=== PATIENT | male | born 1960 | race Caucasian/White ===

== ENCOUNTER 2016-09-22 07:30 | Inpatient (IN) ==
[2016-10-11] MEDS ORDERED: LIDOCAINE MPF 2% /EPI 20 ML VIAL ONE (05:52)
[2016-10-11] MEDS ORDERED: ALVIMOPAN 12 MG CAPSULE PO ONE (06:00)
[2016-10-11] MEDS ORDERED: cefTRIAXone 1,000 MG in SODIUM CHLORIDE 0.9% 100 ML IV ONE (06:00)
[2016-10-11] MEDS ORDERED: ALVIMOPAN 12 MG CAPSULE ONE (06:19)
[2016-10-11] MEDS ORDERED: SODIUM CHLORIDE 0.9% 100 ML IV ONE (06:20)
[2016-10-11] MEDS ORDERED: cefTRIAXone 1,000 MG VIAL ONE (06:20)
[2016-10-11] MEDS ORDERED: LACTATED RINGERS 1,000 ML IV SCH (06:30)
[2016-10-11] MEDS ORDERED: ROPIVACAINE 0.5% 30 ML VIAL ONE (06:50)
--- NOTE | 2016-10-11 06:52 | History and Physical Update ---
History and Physical Update - History and Physical H&P was reviewed, the patient examined and there: are no changes in the patients condition since last H&P was completed.
[2016-10-11] MEDS ORDERED: SUCCINYLCHOLINE 200 MG/10 ML VIAL ONE (07:15)
[2016-10-11] MEDS ORDERED: DEXAMETHASONE 10 MG/1 ML VIAL ONE (07:15)
[2016-10-11] MEDS ORDERED: PHENYLEPHRINE 1 MG/10 ML SYRINGE IV ONE (07:15)
[2016-10-11] MEDS ORDERED: LIDOCAINE 2% 5 ML VIAL ONE (07:15)
[2016-10-11] MEDS ORDERED: GLYCOPYRROLATE 0.4 MG/2 ML VIAL ONE (07:15)
[2016-10-11] MEDS ORDERED: ROCURONIUM 100 MG/10 ML VIAL IV ONE (07:15)
[2016-10-11] MEDS ORDERED: PROPOFOL 200 MG/20 ML VIAL IV ONE (07:15)
[2016-10-11] MEDS ORDERED: ONDANSETRON 4 MG/2 ML VIAL ONE ×2 (07:15→10:27)
[2016-10-11] MEDS ORDERED: NEOSTIGMINE 10 MG/10 ML VIAL ONE (07:15)
[2016-10-11 08:24] LABS: Apearance,Urine CLEAR (Clear); Bilirubin,Urine Negative (Negative); Blood, Urine Negative (Negative); Glucose,Urine (UA) 50 mg/dL (Negative); Ketones,Urine Negative (Negative); Nitrite,Urine Negative (Negative); Protein,Urine Negative; RBC,Urine <1 /HPF (0-4); Urine Color Straw (Yellow); Urine Specific Gravity 1.005 (1.001-1.035); Urine Urobilinogen < 2.0 EU/DL (0.2-1.0); WBC,Urine 1 /HPF (0-6)
[2016-10-11] MEDS ORDERED: ONDANSETRON 4 MG/2 ML VIAL IV PRN (08:36)
[2016-10-11] MEDS ORDERED: diphenhydrAMINE 50 MG/1 ML VIAL IV PRN (09:41)
--- NOTE | 2016-10-11 09:53 | Operative Note ---
Date of procedure: 10/11/16 Pre-op diagnosis: Renal cell carcinoma the right kidney Post-op diagnosis: same Procedure: 56-year-old white male with a large renal cell carcinoma the right kidney emanating from the mid to right lower pole. Metastatic survey is negative. I have recommended an open right radical nephrectomy. The procedure was explained at length and in detail. Risks, complications, outcomes, sequelae, prognosis and alternative therapy was discussed. Patient understood this and agreed to proceed. Patient brought to the operative suite placed on the table in the supine position. He is given a general endotracheal anesthetic and then rolled in the left lateral decubitus position and secured to the table for right radical nephrectomy. He is then prepared and draped in the usual sterile manner. Formal timeout performed. Incision is created over the 12th rib and carried laterally across the abdomen. Incision is wide with cautery. The muscles were divided. Periosteum of the rib was then elevated and the small portion of the rib was removed. Diaphragm is then dissected away small rent in the pleura was created and this will be closed at the end of the case. The muscles were further divided. The retroperitoneum was entered and the kidney is then blotted. Plane between the colon and Gerota's fascia is then developed. There is a lot of parasitic vessels to this tumor as imagine. These were then cauterized and divided. Ureter is not identified and then isolated. It is ligated with proximal 2-0 silk and a distal 2-0 chromic and divided. Attachments were then divided sharply with cautery. Dissection was continued posterior and laterally sharp and blunt dissection was performed. Vessels were hemoclipped and divided. Dissection was continued sharply over on top of the adrenal. The attachments were hemoclipped and divided. The adrenal vein is identified Hemoclip 2 and divided. Dissection was continued medially around the vessels. Artery and the vein were then divided and using a vascular staple the artery was initially divided and then the vein was then divided. The specimen was then removed along with the adrenal and sent for pathologic examination. On the vena cava the lymphatic tissue was then dissected away there was a anterior vein was hemoclipped 2 and divided and his karyn package was then sent for separate pathologic examination. Wound was irrigated and drained. Hemostasis checked with cautery. Piece of Gelfoam was placed over the vena cava and in the renal and adrenal fossa. The break was removed and the table patient was laying flat. The rent in the pleura was slightly enlarged. A 14 Vietnamese catheter was placed in this in the 2-0 Vicryl pursestring was then placed around this. With full inspiration 60 cc catheter tip syringe was then used to provide negative pressure and the catheter was removed while tying the pursestring suture tightly. The wound was then closed in multiple layers interrupted #1 Vicryl. Subcutaneous tissue was irrigated drained and hemostasis checked with cautery. The skin closed skin clips. 0.5% Neuropin was then used to provide intercostal block and wound anesthesia. 30 cc were used. Sterile dressings were placed on the wound. Patient was awakened general anesthesia and rolled in the supine position having tolerated this procedure well. Patient was then transferred to the recovery room in stable condition. All sponge, needle needle counts correct 2. Anesthesia: GETA Surgeon / Physician: Mark Anthony Saleh Estimated blood loss: other (200cc) Specimens: other (Right kidney with adrenal, pericaval lymph nodes) Condition: stable Disposition: PACU Discharge Plan - Discharge Medications No Action glyBURIDE [Glyburide] 5 mg PO DAILY amLODIPine [Norvasc] 5 mg PO DAILY Lisinopril 20 mg PO DAILY - Follow Up or Referral - Forms/Instructions
[2016-10-11] MEDS ORDERED: SEVOFLURANE 1 UNIT/15 MINUTE INH ONE (10:17)
[2016-10-11] MEDS ORDERED: MIDAZOLAM 2 MG/2 ML VIAL ONE (10:17)
[2016-10-11] MEDS ORDERED: LACTATED RINGERS 1,000 ML IV ONE (10:17)
[2016-10-11] MEDS ORDERED: fentaNYL 100 MCG/2 ML VIAL ONE (10:17)
[2016-10-11] MEDS ORDERED: ACETAMINOPHEN 1,000 MG/100 ML VIAL IV ONE (10:17)
[2016-10-11] MEDS ORDERED: DESFLURANE 1 UNIT/15 MINUTE INH ONE (10:18)
[2016-10-11] MEDS ORDERED: HYDROmorphone 2 MG/1 ML VIAL ONE (10:27)
[2016-10-11] MEDS: HYDROmorphone 2 MG/1 ML VIAL IV PRN ×2 (10:30→10:35)
[2016-10-11] MEDS ORDERED: HYDROmorphone PCA 30 MG/30 ML SYRINGE IV ONE (10:41)
--- NOTE | 2016-10-11 10:45 | XRay Report ---
Exam: XR chest 1V Date: 10/11/2016 9:45 AM Comparison: None Indication: Closure on the pleura, possible pneumo thorax Technique:[Portable AP sitting chest] Findings: Limited expiratory chest. The heart is enlarged with diffuse atelectasis/edema especially in the perihilar location on the right. No definite pneumothorax is identified. Increased right hilar density with degenerative changes. Impression: Cardiomegaly with perihilar atelectasis/infiltration especially on the right with increased right hilar density. This finding makes it difficult to exclude possible adenopathy, etc. Follow-up chest x-ray recommended. No definite pneumothorax identified. PROCEDURE INTERPRETED AT [facility] DEPARTMENT OF RADIOLOGY Final Report Signed by: Dr. Ale Lainez
[2016-10-11] MEDS: HYDROmorphone PCA 30 MG/30 ML SYRINGE IV SCH (10:47)
[2016-10-11] MEDS: SODIUM CHLORIDE 0.45% 1,000 ML IV SCH ×2 (11:28→21:30)
[2016-10-11] MEDS: ONDANSETRON 4 MG/2 ML VIAL IV PRN (13:37)
--- NOTE | 2016-10-11 16:21 | Pulmonology Progress Note ---
Pulmonary - PN: Subj Interval history: Patient is a 56 year white man that was found to have a right renal mass came in today and had the renal cancer resected. He is a large man that has high blood pressure and diabetes. He has been quite healthy however. He was found to have an abnormal EKG so he did undergo a cardiac catheterization recently. This turned out to be negative. He denied any breathing problems and he came in today for the surgery. He is complaining of some nausea and coarse discomfort. Otherwise he had no trouble with anesthesia and did well with the surgery. He has not had any breathing problems now. Exam (Progress Note) - Constitutional Vitals: Period Temp Pulse Resp BP Sys/Martinez Pulse Ox Last 24 Hr 97.0 F-98.2 F 65-83 16-20 134-183/65-101 92-98 General appearance: mild distress, over weight, other (He is uncomfortable but is breathing okay) - Head Head exam: Present: normal inspection, normocephalic - Eye Eye exam: Present: EOMI. Absent: scleral icterus Pupils: Present: TITA - ENT ENT exam: Present: normal exam - Neck Neck exam: Present: normal inspection. Absent: lymphadenopathy, thyromegaly - Respiratory Respiratory exam: Present: clear to auscultation bilaterally. Absent: wheezes - Cardiovascular Cardiovascular exam: Present: regular rate and rhythm. Absent: gallop, systolic murmur - GI/Abdominal GI/Abdominal exam: Present: hypoactive bowel sounds, tenderness (Has right sided tenderness), soft. Absent: organomegaly - Extremities Exam Extremities exam: Absent: calf tenderness, edema - Neurological Exam Neurological exam: Present: alert, oriented X3, CN II-XII intact - Psychiatric Psychiatric exam: Present: normal affect, normal mood - Skin Skin exam: Present: warm, dry Assessment and Plan (1) Renal cell cancer Status: Acute Assessment and plan: The patient had a right nephrectomy today for renal cell cancer. He seems to be stable postop Current Visit: Yes (2) Hypertension Status: Acute Assessment and plan: He is alert and has a stable blood pressure so far. Current Visit: Yes (3) Diabetes Status: Acute Assessment and plan: His glucoses will be monitored. Current Visit: Yes
--- NOTE | 2016-10-11 17:42 | Urology Progress Note ---
Urology - PN: Subj Interval history: Postoperative check. Patient is awake and alert. Dressing is dry and intact. Abdomen is soft but incisional tenderness. Urine is clear. Vital signs are stable. Patient is stable. Exam - Constitutional Vitals: Period Temp Pulse Resp BP Sys/Martinez Pulse Ox Last 24 Hr 97.0 F-98.2 F 65-83 16-20 134-183/65-101 92-98
[2016-10-11] MEDS: ALVIMOPAN 12 MG CAPSULE PO SCH (20:14)
[2016-10-12 06:05] LABS: Basophils % 0.1 % (0.0-0.8); Hemoglobin 12.5 GM/DL (14.0-18.0); Immature Granulocytes % 0.6 %; Immature Granulocytes Absolute 0.08 #; Lymphocytes # 1.1 10*3/uL (1.4-4.0); Lymphocytes % 7.8 % (21.2-54.2); Mean Corpuscular HGB Conc 30.5 GM/DL (32-36); Mean Corpuscular Hemoglobin 25 PG (27-34); Mean Corpuscular Volume 82.7 FL (87-102); Mean Platelet Volume 10.3 FL (9.6-12.0); Monocytes # 0.8 10*3/uL (0.11-0.8); Monocytes % 5.6 % (1.7-12.7); Neutrophils # 12.2 10*3/uL (1.4-7.4); Neutrophils % 85.9 % (38.7-73.9); Platelet Count 202 T/CUMM (130-400); Red Blood Count 4.96 MC/CUMM (3.8-5.5); Red Cell Distribution Width 14.6 % (9.3-17.3); White Blood Count 14.2 T/CUMM (4-12)
[2016-10-12 06:39] LABS: Calcium 8.6 MG/DL (8.5-10.1); Osmolality,Calculated 294.4 MOS/KG (273-304)
--- NOTE | 2016-10-12 08:05 | Event Note ---
This is a chart review note only in response to a courtesy consult. He is status post right radical nephrectomy for renal cell carcinoma. Hopefully I will be able to come by to see him later today.
[2016-10-12] MEDS: LISINOPRIL 20 MG TABLET PO SCH (08:14)
[2016-10-12] MEDS: amLODIPine 5 MG TABLET PO SCH (08:14)
[2016-10-12] MEDS: glyBURIDE 5 MG TABLET PO SCH (08:14)
[2016-10-12] MEDS: ALVIMOPAN 12 MG CAPSULE PO SCH ×2 (08:14→22:05)
[2016-10-12] MEDS: SODIUM CHLORIDE 0.45% 1,000 ML IV SCH ×2 (08:17→22:14)
--- NOTE | 2016-10-12 08:57 | Pulmonology Progress Note ---
Pulmonary - PN: Subj Interval history: Patient is a 56 year white man that was found to have a right renal mass came in today and had the renal cancer resected. He is a large man that has high blood pressure and diabetes. He has been quite healthy however. He was found to have an abnormal EKG so he did undergo a cardiac catheterization recently. This turned out to be negative. He had surgery yesterday for the right nephrectomy. He apparently has a large tumor. He had a lot of nausea and discomfort yesterday but is better today. He feels like he is breathing okay and discomfort is a little better. He did sit up a good bit last night. Overall he is doing fairly well. Exam (Progress Note) - Constitutional Vitals: Period Temp Pulse Resp BP Sys/Martinez Pulse Ox Last 24 Hr 97.0 F-98.1 F 65-83 16-20 129-151/65-85 92-98 Exam: General appearance: no distress, over weight, other (He is comfortable lying in bed and looks better today.) - Head Head exam: Present: normal inspection, normocephalic - Eye Eye exam: Present: EOMI. Absent: scleral icterus Pupils: Present: TITA - ENT ENT exam: Present: normal exam - Neck Neck exam: Present: normal inspection. Absent: lymphadenopathy, thyromegaly - Respiratory Respiratory exam: Present: clear to auscultation bilaterally. He is moving air well without any wheezing. - Cardiovascular Cardiovascular exam: Present: regular rate and rhythm. Absent: gallop, systolic murmur - GI/Abdominal GI/Abdominal exam: Present: hypoactive bowel sounds, tenderness (Has right sided tenderness), soft. Absent: organomegaly - Extremities Exam Extremities exam: Absent: calf tenderness, edema - Neurological Exam Neurological exam: Present: alert, oriented X3, CN II-XII intact - Psychiatric Psychiatric exam: Present: normal affect, normal mood - Skin Skin exam: Present: warm, dry Results - Labs CBC & BMP: 10/12/16 05:23 10/12/16 05:23 Assessment and Plan (1) Renal cell cancer Status: Acute Assessment and plan: The patient had a right nephrectomy today for renal cell cancer. He does have some discomfort but is doing better today. Current Visit: Yes (2) Hypertension Status: Acute Assessment and plan: He is alert and has a stable blood pressure so far. He appears to be medically stable. Current Visit: Yes (3) Diabetes Status: Acute Assessment and plan: His glucoses will be monitored. His glucose was 198 this morning Current Visit: Yes (4) Renal insufficiency Status: Acute Assessment and plan: His creatinine is up to 2.4 today. Current Visit: Yes
[2016-10-12] MEDS: HYDROmorphone PCA 30 MG/30 ML SYRINGE IV SCH (09:19)
--- NOTE | 2016-10-12 09:51 | Physician Query Form ---
CLICK EDIT DOCUMENT TO SELECT QUERY ANSWER --> OK --> SIGN Gemma Fleming RN, CCDS Certified Clinical Industrial Machine Operator W) [phone] (f) [phone] [email or web address] PROVIDERS: Make your selection(s) from the choices in EACH section by typing an "x" and enter comments in the comment section. Please use your independent medical judgment in providing your response. This request does not imply that any particular answer is desired or expected. CLINICAL INDICATORS: (Providers should not edit this section) The medical record indicates that the patient was admitted for renal cell cancer , had surgery, on the : "Renal Insufficiency" creatinine is up to 2.4 today and the patient is on 07/25 NS. Clarify which of the following most accurately represents the patient's renal status: ( ) Acute kidney injury (non-traumatic) ( ) Acute renal failure ( ) Acute renal failure with underlying Chronic Kidney Disease (CKD) - please provide stage below ( ) Acute renal failure with pathological renal lesion ( ) Acute renal failure with necrosis ( ) tubular ( ) medullary ( ) cortical ( ) CKD - please provide stage below ( ) End Stage Renal Disease ( ) Acute interstitial nephritis ( ) Hepatorenal syndrome ( ) Other, please specify: ( x) Clinically unable to determine Chronic Kidney Disease Stages Source: National Kidney Disease Foundation ( ) Stage I (eGFR > or = 90) ( ) Stage II (eGFR 60 - 89) ( ) Stage III (eGFR 30 - 59) ( ) Stage IV (eGFR 15 - 29) ( ) Stage V (eGFR < 15 or dialysis) COMMENTS: Use of terms such as suspected, likely, or probable (associated with a specific diagnosis that is being evaluated, monitored, or treated as if it exists) are acceptable and can be restated in the discharge summary if not ruled out. MTDD
--- NOTE | 2016-10-12 11:47 | Pathology Report from [facility] ---
ACCESSION # : [id number] PATIENT NAME : Girish Mesa ORDERING DR : PETE MESSINA MD CLINICAL HX: Right renal mass POST-OP DX: Same SPECIMEN INFO: #1 Right kidney with adrenal #2 Pericaval node (FRESH) GROSS DESCRIPTION: #1 Received in formalin labeled with the patient's name "GIRISH MESA" and consists of a 11.5 x 7.0 cm kidney. Bisecting the kidney reveals a large yellow-orange tumor mass involving grossly the upper and lower poles of the kidney measuring 11.5 x 7.0 cm. Grossly the tumor extends to the renal capsule and largely involves the renal pelvis. A layer of perirenal fat is attached to the kidney which measures from 0.5 cm up to 2.0 cm in thickness. Grossly the Gerota fascia lies freely over the kidney. A fragment of fibroadipose tissue is received separately in the container measuring 10.5 x 7.5 cm with the 5.0 x 5.0 cm unremarkable adrenal gland. Sections: 1A ureter and vascular margins, 1B and 1C tumor and adjacent fatty margins, 1D thru 1G ( Sinus) additional tumor, 1H parts sales representative normal kidney, 1I additional fatty margin, 1J thru 1L parts sales representative adrenal gland.#2 Received fresh labeled with the patient's name "GIRISH MESA" and consists of an adipose tissue fragment measuring 6.3 x 2.2 cm. No lymph node tissue is grossly appreciated on sectioning. Submitted entirely in cassettes 2A and 2B. DIAGNOSIS FOR GIRISH MESA: #1 & #2 RIGHT KIDNEY & ADRENAL W/ PERICAVAL LYMPH NODE, RADICAL NEPHRECTOMY: TYPE: Renal cell carcinoma, clear cell pattern. SIZE : 11.5 x 7.0 cm. TREY GRADE 2. MARGINS: Uninvolved. SITE: Central kidney. FOCALITY: Unifocal. ANATOMIC EXTENT: Tumor limited to kidney. SARCOMATOID FEATURES: Not identified. TUMOR NECROSIS: Not identified. LYMPH VASCULAR INVASION: Not identified. LYMPH NODES: Number examined: 1 (#3 pericaval node) ; Number involved: 0. FINDINGS IN KIDNEY: Focal Glomerulosclerosis and Interstitial nephritis. AJCC PATHOLOGIC STAGE II ([id number]). SERVICE DATE: 10/11/2016 REPORT DATE: 10/12/2016 PATHOLOGIST: Simon Victoria M.D. [facility]IDE HOSPITALAleksandra
[2016-10-12] MEDS ORDERED: MEPERIDINE 50 MG/1 ML VIAL IM PRN (12:18)
--- NOTE | 2016-10-12 12:21 | Urology Progress Note ---
Urology - PN: Subj Interval history: Postop day 1 radical nephrectomy. Patient is doing well. His abdomen is soft. He is ambulating some. H&H is stable. His creatinine went up to 2.4 from 1.9 preop. I am not surprised about that. He had some moderate pain. We will DC his INFANT NANNY place him on oral meds as they would last longer. Demerol if he needs it. He needs to ambulate. Pathology report is back. It reveals a confined cancer. This is a large cancer. But lymph nodes were negative and no lymphovascular invasion. His prognosis is excellent considering the size of his tumor. It was a grade 2 however. Exam - Constitutional Vitals: Period Temp Pulse Resp BP Sys/Martinez Pulse Ox Last 24 Hr 97.3 F-98.2 F 57-83 16-20 129-148/66-82 94-95 Results - Labs CBC & BMP: 10/12/16 05:23 10/12/16 05:23
[2016-10-12] MEDS: ONDANSETRON 4 MG/2 ML VIAL IV PRN (13:29)
[2016-10-12] MEDS: oxyCODONE/ACETAMINOPHEN 5-325 MG TABLET PO PRN ×3 (15:37→22:15)
[2016-10-12] MEDS ORDERED: ALUMINUM/MAGNES/SIMETH MAX STR 30 ML UDCUP PO PRN (18:49)
--- NOTE | 2016-10-12 19:29 | EKG Report ---
Stationary ECG Study [facility] Test Date: 10/12/2016 7:29:44 PM Pat Name: GIRISH CASTILLO Department: Room: 541 Gender: M Hydramatic Specialist: CAITLYN : 1960 Requested by: Brad Hinton Order Number: [id number] Reading MD: ZULY MAYS Intervals [place] Rate: 64 P: 56 TN: 144 QRS: 12 QRSD: 106 T: 61 QT: 411 QTc: 421 Interpretive Statements SINUS RHYTHM WITH FREQUENT VENTRICULAR PREMATURE COMPLEXES LEFT ATRIAL ENLARGEMENT POSSIBLE OLD ANTEROSEPTAL MYOCARDIAL Electronically Signed On 10-15-16 19:21:23 CDT by ZULY MAYS [email or web address]
[2016-10-12 19:51] LABS: Troponin I Only 0.025 NG/ML (0.00-0.045)
[2016-10-13] MEDS: oxyCODONE/ACETAMINOPHEN 5-325 MG TABLET PO PRN (01:40)
--- NOTE | 2016-10-13 08:04 | Oncology Consult Note ---
History of Present Illness History of present illness: Mr. Mesa is a 56 year old male who is now status post right radical nephrectomy for a large renal cell carcinoma. 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 One lymph node on the sample was negative. He is currently recovering from surgery. He still not had a bowel movement in his diet is being slowly advanced. He is artery scheduled see me on October 25. At that time I'll likely arrange for a follow-up CT scan to be done 6 months from surgery. Given that his creatinine is greater than 2, we will likely have to do the scans without contrast. Please if there are any further questions that I can answer while he is in the hospital. Home Medications Medication Instructions Recorded Confirmed Type Lisinopril 20 mg PO DAILY 10/06/16 10/11/16 History amLODIPine [Norvasc] 5 mg PO DAILY PRN 10/06/16 10/11/16 History glyBURIDE [Glyburide] 5 mg PO DAILY 10/06/16 10/11/16 History amLODIPine [Norvasc] 2.5 mg PO DAILY 10/11/16 10/11/16 History Allergies Allergy/AdvReac Type Severity Reaction Status Date / Time valsartan AdvReac Severe Severe Verified 10/07/16 11:07 [place]o in BP Medical,Surgical,& Family Hx - Medical History Cardio: History of: Cardiac Dysrhythmia (IRRUGLAR HEART BEAT), Hypertension Psychological: History of: Anxiety Disorders Neurology: No history of: Seizures Endocrine: History of: Diabetes Mellitus (NIDDM) Renal: History of: Renal (Kidney) Cancer (RIGHT KIDNEY) - Surgical History Thoracic Surgeries: Surgical HX of;: Kidney (Renal Surgery) (10/11/16) HEENT Surgeries: Surgical HX of: Tonsilectomy & Adenoidectomy Abdominal Surgeries: Surgical HX of: Hernia Repair (2000) - Family History Family History: Reports;: Family Hypertension (MOTHER) - Social History Smoking Status: Never smoker Frequency of Alcohol Use: None Type of Drug Use: None Exam - Constitutional Vitals: Period Temp Pulse Resp BP Sys/Martinez Pulse Ox Last 24 Hr 98.2 F-99.2 F 57-84 18-20 136-157/66-86 90-95 Results - Labs CBC & BMP: 10/12/16 05:23 10/12/16 05:23
[2016-10-13] MEDS: glyBURIDE 5 MG TABLET PO SCH (09:41)
[2016-10-13] MEDS: amLODIPine 5 MG TABLET PO SCH (09:41)
[2016-10-13] MEDS: LISINOPRIL 20 MG TABLET PO SCH (09:41)
[2016-10-13] MEDS: ALVIMOPAN 12 MG CAPSULE PO SCH (09:42)
--- NOTE | 2016-10-13 10:26 | Discharge Summary ---
Hospital Course - Hospital Course Hospital Course: Patient status post right radical nephrectomy for renal cell carcinoma. He tolerated the procedure well. His creatinine did rise from 1 9-2.4. That is not surprising. His pathology report revealed confined cancer. Negative margins and negative lymph nodes. I will leave follow-up treatments etc. with Dr. Peres. We will of course centimeters postoperative in the recovery period. His abdomen is soft. He is ambulating. His wound is healing well. He is passing gas. I gave the patient the option whether he could go home or stay another day and he wants to go home. I think that is appropriate. He will do better at home. Natural surroundings. His abdomen is soft on exam. He is voiding well. We will discharge him to follow-up in office in 2 weeks. Discharge medicines will be Percocet 5 mg, #20, 1 every 4-6 hours as needed pain. He will continue his home medicines. We will stay off the aspirin until I see him. Discharge Plan - Discharge Data Disposition: Disch To Home/Self Care Condition at Discharge: Stable Discharge Diet: diabetic diet Activity: no lifting, other (No lifting, straining, driving or riding. Walking on flat ground is encouraged) Hygiene: no restrictions Weight Bearing at Discharge: full weight bearing Driving: not until seen by doctor Contact your physician if you experience:: fever over 101, Difficulty voiding, Redness or swelling, Nausea/Vomiting, Shortness of breath, Bleeding, pain uncontrolled by pain medications - Discharge Medications New oxyCODONE/ACETAMINOPHEN 5-325 [Percocet 5-325] 1 - 2 tablet PO Q4H PRN #0 tablet PRN Reason: Pain Moderate (4-7) Continue glyBURIDE [Glyburide] 5 mg PO DAILY amLODIPine [Norvasc] 5 mg PO DAILY PRN PRN Reason: blood pressure Lisinopril 20 mg PO DAILY amLODIPine [Norvasc] 2.5 mg PO DAILY - Follow Up or Referral - Forms/Instructions Exam - Constitutional Vitals: Period Temp Pulse Resp BP Sys/Martinez Pulse Ox Last 24 Hr 98.2 F-99.2 F 57-95 18-20 136-157/66-86 90-95 Discharge Results Labs on day of discharge: Labs from last 24 hours 10/13/16 10/12/16 10/12/16 07:24 23:41 18:59 POC Glucose 133 H 161 H Total Creatine Kinase 465 H CK-MB (CK-2) 2.7 Troponin I 0.025 DS: Provider Date of admission: 10/11/16 05:39 Primary care physician: Emma Burns, Attending physician on admission: Mark Antohny Saleh MD Consults: 10/11/16 09:41 Consult to Physician [CONS] Routine Comment: Renal cell carcinoma Consulting Provider: Raymundo Peres Person Notified: Nuha Date Notified: 10/11/16 Time Notified: 13:59 10/11/16 09:43 Consult to Physician [CONS] Routine Comment: re: Medical Locomotive Engineer Diesel Provider: Brad Hinton Person Notified: CROW Date Notified: 10/11/16 Time Notified: 14:16 Consult Notification Comment: 10/11/16 12:05 Consult to Dietitian [CONS] Routine Reason for Dietitian: Other Discharging clinician: Mark Anthony Saleh MD
--- NOTE | 2016-10-13 10:27 | Pulmonology Progress Note ---
Pulmonary - PN: Subj Interval history: Patient is a 56 year white man that was found to have a right renal mass came in today and had the renal cancer resected. He is a large man that has high blood pressure and diabetes. He has been quite healthy however. He was found to have an abnormal EKG so he did undergo a cardiac catheterization recently. This turned out to be negative. He had surgery for the right nephrectomy. He apparently has a large tumor. Last night apparently he had some shoulder and chest pain but is feeling much better today. He says he has had problems with his clavicle before. He is sitting up today and actually looks much better. He is eating solid food and says his abdomen is better. He is not having any trouble with his breathing. He is starting to walk around more. Exam (Progress Note) - Constitutional Vitals: Period Temp Pulse Resp BP Sys/Martinez Pulse Ox Last 24 Hr 98.2 F-99.2 F 57-95 18-20 136-157/66-86 90-95 Exam: General appearance: no distress, over weight, other (He is sitting up and looks better today.) - Head Head exam: Present: normal inspection, normocephalic - Eye Eye exam: Present: EOMI. Absent: scleral icterus Pupils: Present: TITA - ENT ENT exam: Present: normal exam - Neck Neck exam: Present: normal inspection. Absent: lymphadenopathy, thyromegaly - Respiratory Respiratory exam: Present: clear to auscultation bilaterally. He is moving air well without any wheezing. - Cardiovascular Cardiovascular exam: Present: regular rate and rhythm. He has occasional PVCs. absent: gallop, systolic murmur - GI/Abdominal GI/Abdominal exam: Present: hypoactive bowel sounds, tenderness (Has right sided tenderness), soft. Absent: organomegaly - Extremities Exam Extremities exam: Absent: calf tenderness, edema - Neurological Exam Neurological exam: Present: alert, oriented X3, CN II-XII intact - Psychiatric Psychiatric exam: Present: normal affect, normal mood - Skin Skin exam: Present: warm, dry Results - Labs CBC & BMP: 10/12/16 05:23 10/12/16 05:23 Assessment and Plan (1) Renal cell cancer Status: Acute Assessment and plan: The patient had a right nephrectomy for renal cell cancer. He is moving around more and his abdomen is feeling better. His pathology was a stage II. Current Visit: Yes (2) Hypertension Status: Acute Assessment and plan: He is alert and has a stable blood pressure so far. He appears to be medically stable. He does have some PVCs but he has had a negative cardiac catheterization. Current Visit: Yes (3) Diabetes Status: Acute Assessment and plan: His glucoses will be monitored. His glucose was 133 this morning Current Visit: Yes (4) Renal insufficiency Status: Acute Assessment and plan: His creatinine is up to 2.4 today. Current Visit: Yes
[2016-10-13 11:00] VITALS: BP 147/68
[2016-10-13] MEDS: SODIUM CHLORIDE 0.45% 1,000 ML IV SCH (11:45)
== END 2016-10-13 13:51 | disposition home or self-care (01) | DRG 658 ==
LOC: N.SDSINP 10-11 05:39 → N.5E 10-11 09:31
PROVIDERS: ADMIT Urology; ATTEND Urology

== ENCOUNTER 2018-05-02 18:08 | Inpatient (IN) ==
[2018-05-02] MEDS ORDERED: ADENOSINE 6 MG/2 ML VIAL ONE (18:24)
[2018-05-02] MEDS ORDERED: AMIODARONE 150 MG/3 ML VIAL ONE (18:26)
[2018-05-02] MEDS ORDERED: AMIODARONE 450 MG/9 ML VIAL IV ONE (18:37)
[2018-05-02] MEDS ORDERED: AMIODARONE INJ 150 MG in DEXTROSE 5% 100 ML IV ONE (18:39)
[2018-05-02] MEDS ORDERED: AMIODARONE INJ 150 MG in DEXTROSE 5% 100 ML IV STA (18:39)
[2018-05-02] MEDS ORDERED: SODIUM CHLORIDE 0.9% 1,000 ML IV STA (18:39)
[2018-05-02 18:47] LABS: Basophils # 0.1 10*3/uL (0.0-0.2); Basophils % 0.9 % (0.0-0.8); Eosinophils # 0.2 10*3/uL (0.0-0.87); Eosinophils % 2.3 % (0.00-10.9); Hematocrit 44.6 VOL% (42.0-52.0); Hemoglobin 14.3 GM/DL (14.0-18.0); Immature Granulocytes % 0.3 %; Immature Granulocytes Absolute 0.03 #; Lymphocytes # 2.7 10*3/uL (1.4-4.0); Lymphocytes % 30.9 % (21.2-54.2); Mean Corpuscular HGB Conc 32.1 GM/DL (32-36); Mean Corpuscular Hemoglobin 26 PG (27-34); Mean Corpuscular Volume 81.8 FL (87-102); Mean Platelet Volume 9.5 FL (9.6-12.0); Monocytes # 0.6 10*3/uL (0.11-0.8); Monocytes % 6.9 % (1.7-12.7); Neutrophils # 5.1 10*3/uL (1.4-7.4); Neutrophils % 58.7 % (38.7-73.9); Platelet Count 175 T/CUMM (130-400); Red Blood Count 5.45 MC/CUMM (3.8-5.5); White Blood Count 8.7 T/CUMM (4-12)
[2018-05-02 18:53] LABS: PT Patient Result 10.2 SECS; Partial Thromboplastin Time 25.4 SECS (0-40)
[2018-05-02] MEDS: AMIODARONE INJ 450 MG in DEXTROSE 5% 241 ML IV SCH (18:56)
[2018-05-02 19:23] LABS: Albumin 3.9 G/DL (3.4-5.0); Bilirubin,Total 0.5 MG/DL (0.2-1.0); Potassium 5.2 MMOL/L (3.5-5.1); Thyroid Stimulating Hormone 1.98 uIU/ml (0.358-3.74)
[2018-05-02] MEDS ORDERED: MAGNESIUM SULF RIDER 4 GM in PREMIX 1 EACH IV PRN (19:50)
[2018-05-02] MEDS ORDERED: MAGNESIUM SULF RIDER 2 GM in PREMIX 1 EACH IV PRN (19:50)
[2018-05-02 20:15] LABS: Apearance,Urine CLEAR (Clear); Bilirubin,Urine Negative (Negative); Blood, Urine Small mg/dL (Negative); Glucose,Urine (UA) 50 mg/dL (Negative); Ketones,Urine Negative (Negative); Mucus,Urine Occasional /LPF (Occasional); Nitrite,Urine Negative (Negative); Protein,Urine 30 MG/DL; RBC,Urine 1 /HPF (0-4); Urine Color Straw (Yellow); Urine Specific Gravity 1.006 (1.001-1.035); Urine Urobilinogen < 2.0 EU/DL (0.2-1.0); WBC,Urine 1 /HPF (0-6)
[2018-05-02 20:22] LABS: Barbiturates Screen,Urine Negative (Negative); Benzodiazepines Screen,Urine Negative (Negative); Cannabinoid Screen,Urine Negative (Negative); Opiate Screen,Urine Negative (Negative); Phencyclidine Screen,Urine Negative (Negative)
[2018-05-02] MEDS ORDERED: INFLUENZA VIRUS VACCINE 0.5 ML SYRINGE IM ONE (20:34)
[2018-05-02] MEDS: DEXTROSE 5% NACL 0.9% 1,000 ML IV SCH (20:43)
[2018-05-02] MEDS: CARVEDILOL 3.125 MG TABLET PO SCH (22:04)
[2018-05-03] MEDS: AMIODARONE INJ 450 MG in DEXTROSE 5% 241 ML IV SCH ×3 (00:21→12:49)
[2018-05-03 05:00] LABS: Calcium 8.8 MG/DL (8.5-10.1); Osmolality,Calculated 291.5 MOS/KG (273-304); Potassium 4.2 MMOL/L (3.5-5.1)
[2018-05-03] MEDS: DEXTROSE 5% NACL 0.9% 1,000 ML IV SCH (05:13)
[2018-05-03] MEDS ORDERED: MAGNESIUM SULF RIDER 2 GM in PREMIX 1 EACH IV PRN (07:56)
[2018-05-03] MEDS ORDERED: MAGNESIUM SULF RIDER 4 GM in PREMIX 1 EACH IV PRN (07:56)
[2018-05-03] MEDS ORDERED: MAGNESIUM SULF RIDER 2 GM in PREMIX 1 EACH IV ONE (07:58)
[2018-05-03] MEDS ORDERED: ACETAMINOPHEN 325 MG TABLET PO PRN (07:58)
[2018-05-03] MEDS ORDERED: BISACODYL 5 MG TABLET PO PRN (07:58)
[2018-05-03] MEDS ORDERED: ZALEPLON 5 MG CAPSULE PO PRN (07:58)
[2018-05-03] MEDS ORDERED: ONDANSETRON 4 MG/2 ML VIAL IV PRN (07:58)
[2018-05-03 08:35] LABS: Troponin I 0.113 NG/ML (0.00-0.045)
[2018-05-03] MEDS: PANTOPRAZOLE 40 MG TABLET PO SCH (08:55)
[2018-05-03] MEDS: ASPIRIN EC 81 MG TABLET PO SCH (08:56)
[2018-05-03] MEDS: AMIODARONE 200 MG TABLET PO SCH ×2 (08:56→20:23)
[2018-05-03] MEDS: ENOXAPARIN 30 MG/0.3 ML SYRINGE SUBCUT SCH (08:56)
[2018-05-03] MEDS: CARVEDILOL 3.125 MG TABLET PO SCH ×2 (08:56→17:13)
[2018-05-03] MEDS: SODIUM CHLORIDE 0.9% 1,000 ML IV SCH ×2 (12:50→20:23)
[2018-05-03] MEDS: INSULIN REGULAR 100 UNIT/ML SUBCUT SCH ×3 (12:50→20:22)
[2018-05-03 16:27] LABS: Troponin I 0.068 NG/ML (0.00-0.045)
[2018-05-03] MEDS: DOXAZOSIN 4 MG TABLET PO SCH (20:23)
[2018-05-03 20:47] LABS: Troponin I 0.063 NG/ML (0.00-0.045)
[2018-05-04] MEDS: DOXAZOSIN 4 MG TABLET PO SCH (00:23)
[2018-05-04] MEDS: SODIUM CHLORIDE 0.9% 1,000 ML IV SCH (04:36)
[2018-05-04 05:37] LABS: Basophils # 0.1 10*3/uL (0.0-0.2); Basophils % 0.8 % (0.0-0.8); Eosinophils # 0.3 10*3/uL (0.0-0.87); Eosinophils % 3.6 % (0.00-10.9); Hematocrit 38.1 VOL% (42.0-52.0); Hemoglobin 12.1 GM/DL (14.0-18.0); Immature Granulocytes % 0.4 %; Immature Granulocytes Absolute 0.03 #; Lymphocytes # 2.8 10*3/uL (1.4-4.0); Lymphocytes % 36.4 % (21.2-54.2); Mean Corpuscular HGB Conc 31.8 GM/DL (32-36); Mean Corpuscular Hemoglobin 26 PG (27-34); Mean Platelet Volume 9.6 FL (9.6-12.0); Monocytes # 0.6 10*3/uL (0.11-0.8); Monocytes % 7.4 % (1.7-12.7); Neutrophils # 3.9 10*3/uL (1.4-7.4); Neutrophils % 51.4 % (38.7-73.9); Platelet Count 135 T/CUMM (130-400); Red Blood Count 4.59 MC/CUMM (3.8-5.5); Red Cell Distribution Width 14.8 % (9.3-17.3); White Blood Count 7.6 T/CUMM (4-12)
[2018-05-04 06:02] LABS: Calcium 8.6 MG/DL (8.5-10.1); Potassium 4.6 MMOL/L (3.5-5.1)
[2018-05-04 06:05] LABS: Risk Ratio 3.28; VLDL CHOLESTEROL 7.8 MG/DL
[2018-05-04] MEDS ORDERED: AMIODARONE 200 MG TABLET PO SCH (09:00)
[2018-05-04] MEDS: PANTOPRAZOLE 40 MG TABLET PO SCH (09:24)
[2018-05-04] MEDS: CARVEDILOL 3.125 MG TABLET PO SCH (09:24)
[2018-05-04] MEDS: ASPIRIN EC 81 MG TABLET PO SCH (09:24)
[2018-05-04] MEDS: INSULIN REGULAR 100 UNIT/ML SUBCUT SCH ×2 (09:25→11:45)
[2018-05-04] MEDS: ENOXAPARIN 30 MG/0.3 ML SYRINGE SUBCUT SCH (09:26)
[2018-05-04 16:52] VITALS: BP 168/88
== END 2018-05-04 16:24 | disposition home or self-care (01) | DRG 310 ==
LOC: N.ED 18:08 → N.EDINP 19:50 → N.CC 20:14 → N.TELES 05-03 18:24
PROVIDERS: ADMIT Internal Medicine Interventional Cardiology; ATTEND Internal Medicine Cardiovascular Disease